=== PATIENT | female | born 1990 | race Caucasian/White ===

== ENCOUNTER → 2016-07-24 | Outpatient (REF) | payer OTHER ==
[~2016-07-24] MED LIST: IBUP80TA PO; NEUR300C PO; [UNRECOGNIZED DRUG - OTHER] TOP
== END ==
LOC: M LAB REF 16:49
PROVIDERS: ATTEND Physician Assistant
DX: R11.10 Vomiting, unspecified (principal)

== ENCOUNTER 2018-04-27 16:43 | Emergency (ER) | payer MEDICAID, OTHER, SELFPAY ==
[~2018-04-27] VITALS: Ht 170.2 cm; Wt 89.1 kg
[2018-04-27] MEDS ORDERED: AMOX500C PO (18:37)
[2018-04-27] MEDS ORDERED: LIDO1SOL7 PO (18:37)
[2018-04-27] MEDS ORDERED: IBUP-1022 PO (18:37)
[2018-04-27] MEDS ORDERED: IBUPROFEN 600 MG TAB PO ONE (18:45)
[2018-04-27] MEDS ORDERED: LIDOCAINE VISCOUS 2% SOLN 15ML UDC SS ONE (18:45)
[2018-04-27 18:48] VITALS: BP 106/63
== END 2018-04-27 18:51 | disposition home or self-care (01) ==
LOC: M ED 16:43
DX: J02.0 Streptococcal pharyngitis (principal); G44.209 Tension-type headache, unspecified, not intractable; R52 Pain, unspecified; F17.210 Nicotine dependence, cigarettes, uncomplicated

== ENCOUNTER 2018-06-22 10:18 | Emergency (ER) | payer MEDICAID, OTHER ==
[~2018-06-22] VITALS: Ht 170.2 cm; Wt 81.8 kg
[~2018-06-22 10:18] MED LIST changes: +AMOX500C PO; +IBUP-1022 PO; +LIDO1SOL7 PO
[2018-06-22 11:19] LABS: BASO # 0.1 10^3/uL (0.0-0.2); BASO % 0.6 % (0.0-1.0); EOS # 0.2 10^3/uL (0.0-0.50); EOS % 1.8 % (0.0-3.0); HEMATOCRIT 42.8 % (36.0-47.0); HEMOGLOBIN 14.7 g/dl (12.0-15.5); LYMPH # 2.9 10^3/uL (1.5-6.5); LYMPH % 22.6 % (24.0-44.0); MEAN CORPUSCULAR HEMOGLOBIN 31.4 pg (27.0-33.0); MEAN CORPUSCULAR HGB CONC 34.3 g/dl (32.0-36.5); MEAN CORPUSCULAR VOLUME 91.5 fl (80.0-96.0); MONO % 7.5 % (0.0-5.0); NEUTROPHILS # 8.5 10^3/uL (1.8-7.7); NEUTROPHILS % 67.3 % (36.0-66.0); PLATELET COUNT, AUTOMATED 251 10^3/uL (150-450); RED BLOOD COUNT 4.68 10^6/uL (4.00-5.40); WHITE BLOOD COUNT 12.7 10^3/uL (4.0-10.0)
[2018-06-22 11:55] LABS: HCG, SERUM QUALITATIVE NEGATIVE (NEGATIVE)
[2018-06-22 11:56] LABS: ALBUMIN 3.4 GM/DL (3.2-5.2); ALT/SGPT 23 U/L (12-78); BILIRUBIN,DIRECT 0.1 MG/DL (0.0-0.2); BILIRUBIN,TOTAL 0.3 MG/DL (0.2-1.0); BLOOD UREA NITROGEN 5 MG/DL (7-18); CALCIUM LEVEL 8.5 MG/DL (8.5-10.1); CARBON DIOXIDE LEVEL 27 MEQ/L (21-32); CHLORIDE LEVEL 109 MEQ/L (98-107); CREATININE FOR GFR 0.65 MG/DL (0.55-1.30); GLOMERULAR FILTRATION RATE > 60.0 (>60); GLUCOSE, FASTING 79 MG/DL (70-100); LIPASE 345 U/L (73-393); POTASSIUM SERUM 4.4 MEQ/L (3.5-5.1); SODIUM LEVEL 140 MEQ/L (136-145); TOTAL PROTEIN 6.7 GM/DL (6.4-8.2)
[2018-06-22] MEDS ORDERED: MACR100C43 PO (12:41)
[2018-06-22 12:42] VITALS: BP 117/73
--- NOTE | 2018-06-22 12:48 | REP ---
PELVIC ENDOVAGINAL PROBE ULTRASOUND: 06/22/2018. Clinical history: Left lower quadrant pain, evaluate for cyst or other. Findings: No prior study. Transabdominal and endovaginal probes were utilized. The bladder measured 7.4 x 7.2 x 3.4 cm, marginally adequate in filling. Uterus is anteverted. It is 7.6 x 2.7 x 4.2 cm. There is a central endometrial echogenic stripe which has a thickness of 8.7 mm. It has a normal three line appearance with no fluid endometrial cavity or endocervical canal. Uterus is normal in contour and homogeneous in echogenicity without gross mass. The right ovary is 3.9 x 2.8 x 2.4 cm and the left ovary 3.4 x 3 x 2.9 cm. Both ovaries showed normal Doppler tracing and blood flow 0.61 resistive index right, 0.59 left. No torsion. No cyst or solid mass. A few subcentimeter follicles are noted as a normal finding. Just trace free fluid in the cul-de-sac. Impression: 1. Uterus and bilateral ovaries were without any acute finding. Trace free fluid in the cul-de-sac which may be physiologic. There is no cyst or solid mass in either adnexal region. Normal Doppler tracing and blood flow, no torsion. A few subcentimeter follicles are normal size. No evidence of a collapsed cyst at this time. Negative exam. Electronically Signed by Blake Lemon MD 06/22/2018 09:18 P
== END 2018-06-22 12:56 | disposition home or self-care (01) ==
LOC: M ED 10:18
DX: N39.0 Urinary tract infection, site not specified (principal); F17.210 Nicotine dependence, cigarettes, uncomplicated

== ENCOUNTER → 2018-10-19 | Outpatient (REF) | payer OTHER ==
[~2018-10-19] MED LIST changes: -LIDO1SOL7 PO; +LIDO1SOL8 PO; +MACR100C43 PO
== END ==
LOC: M LAB REF 17:08
PROVIDERS: ATTEND Physician Assistant
DX: J02.9 Acute pharyngitis, unspecified (principal)

== ENCOUNTER → 2019-01-19 | Outpatient (CLI) | payer MEDICAID | LOC: M OUTALCOH 09:28 | PROVIDERS: ATTEND Psychiatry & Neurology Psychiatry | DX: F15.20 Other stimulant dependence, uncomplicated (principal) ==

== ENCOUNTER 2019-01-27 15:00 | Outpatient (RCR) | payer MEDICAID | END 2019-01-30 | LOC: M OUTALCOH 15:00 | PROVIDERS: ATTEND Psychiatry & Neurology Psychiatry | DX: F15.20 Other stimulant dependence, uncomplicated (principal); F17.200 Nicotine dependence, unspecified, uncomplicated ==

== ENCOUNTER 2019-02-14 13:00 | Outpatient (RCR) | payer MEDICAID | END 2019-03-02 | LOC: M OUTALCOH 13:00 | PROVIDERS: ATTEND Psychiatry & Neurology Psychiatry | DX: F15.20 Other stimulant dependence, uncomplicated (principal); F17.200 Nicotine dependence, unspecified, uncomplicated ==

== ENCOUNTER → 2019-04-18 | Outpatient (CLI) | payer MEDICAID, OTHER ==
[2019-04-18 13:39] LABS: BASO % 0.2 % (0.0-1.0); EOS # 0.2 10^3/uL (0.0-0.5); EOS % 1.5 % (0.0-3.0); HEMATOCRIT 41.6 % (36.0-47.0); HEMOGLOBIN 13.9 g/dl (12.0-15.5); LYMPH # 2.5 10^3/uL (1.5-5.0); MEAN CORPUSCULAR HEMOGLOBIN 31.4 pg (27.0-33.0); MEAN CORPUSCULAR HGB CONC 33.4 g/dl (32.0-36.5); MEAN CORPUSCULAR VOLUME 93.9 fl (80.0-96.0); MONO % 7.9 % (0.0-5.0); NEUTROPHILS # 8.7 10^3/uL (1.5-8.5); NEUTROPHILS % 69.9 % (36.0-66.0); PLATELET COUNT, AUTOMATED 251 10^3/uL (150-450); RED BLOOD COUNT 4.43 10^6/uL (4.00-5.40); WHITE BLOOD COUNT 12.4 10^3/uL (4.0-10.0)
[2019-04-18 15:50] LABS: CHLAMYDIA DNA AMPLIFICATION POSITIVE (NEGATIVE); GC DNA AMPLIFICATION NEGATIVE (NEGATIVE)
[2019-04-19 14:26] LABS: HEPATITIS C VIRUS ABY INDEX 0.2 INDEX (<0.8); HIV 1&2 SCREEN CENTAUR NEGATIVE (NEGATIVE); RUBELLA IgG QUALITATIVE SUSCEPTIBLE (IMMUNE)
== END ==
LOC: M PLALAB 09:19
PROVIDERS: ATTEND Advanced Practice Midwife
DX: Z34.02 Encounter for supervision of normal first pregnancy, second trimester (principal); Z3A.00 Weeks of gestation of pregnancy not specified

== ENCOUNTER → 2019-05-12 | Outpatient (CLI) | payer OTHER ==
--- NOTE | 2019-05-12 12:43 | REP ---
OB ULTRASOUND: Real-time sonographic evaluation of the gravid uterus performed. Transabdominal and endovaginal technique is utilized. There is a single living intrauterine gestation with an estimated gestational age 17 weeks 6 days, EDC 10/14/2019. Today's measurements indicate appropriate growth. Biometry and Growth: BPD 38 mm = 17 weeks 5 days, 41st percentile HC 143 mm = 17 weeks 4 days, 37th percentile AC 122 mm = 17 weeks 6 days, 49th percentile FL 26 mm = 18 weeks 0 days, 53rd percentile HC/AC ratio 1.17 within normal range. Estimated weight 214 grams, 46th percentile. SEEN/GROSSLY UNREMARKABLE Lateral ventricles Yes. There may be a 3 mm left choroid plexus cyst. Posterior fossa/cerebellum No Upper lip No Four-chamber heart No LVOT No RVOT Yes Stomach Yes Cord insertion Yes Three vessel cord Yes Kidneys Yes Bladder Yes Spine Yes Cervical length: Closed and measures 3.7 cm in length. heart rate: 150 beats per minute. position: Variable. Placenta: Posterior and grade 1. Placenta is low-lying. Edge of the placenta is 1.1 cm from the internal cervical os. Amniotic fluid: Within normal limits. Electronically Signed by Shiva Raya MD 05/13/2019 03:17 P
== END ==
LOC: M RAD 09:59
PROVIDERS: ATTEND Advanced Practice Midwife
DX: Z34.02 Encounter for supervision of normal first pregnancy, second trimester (principal); Z3A.17 17 weeks gestation of pregnancy

== ENCOUNTER → 2019-05-17 | Outpatient (REF) | payer OTHER ==
[2019-05-17 15:45] LABS: CHLAMYDIA DNA AMPLIFICATION NEGATIVE (NEGATIVE); GC DNA AMPLIFICATION NEGATIVE (NEGATIVE)
== END ==
LOC: M SFHCWAGY 13:33
PROVIDERS: ATTEND Advanced Practice Midwife
DX: Z34.92 Encounter for supervision of normal pregnancy, unspecified, second trimester (principal)

== ENCOUNTER → 2019-05-29 | Outpatient (CLI) | payer OTHER ==
--- NOTE | 2019-05-30 01:27 | REP ---
Clinical: Anatomical evaluation. Comparison: 05/12/2019 . Findings: Examination demonstrates a single live intrauterine in cephalic presentation. motion is identified by technologist. Placenta is noted posterior and grade I without evidence for placenta previa or abruption. Amniotic fluid volume is normal. Cervix measures 3.2 cm in length and appears closed. No evidence for nuchal cord. Gestational age by LMP 20 weeks 2 days with ARTEM 10/14/2019 . Gestational age by current measurements 19 weeks 4 days with ARTEM 10/19/2019 . FHR equals 146 beats per minute. Estimated weight 341 grams ( 43rd percentile). Anatomical assessment demonstrates normal structures including cranium, choroid plexus, cavum, cerebellum/posterior fossa, facial features, lungs, ventricular outflow tracts, diaphragm, stomach, cord insertion/three-vessel cord, kidneys/bladder, and extremities. Previously identified left choroid plexus cyst has resolved. Limited evaluation of the four-chamber heart. Impression: 1. Single live intrauterine in cephalic presentation demonstrating appropriate interval growth. 2. Placenta is normal in appearance and position. 3. With the exception of four-chamber heart views, in conjunction with prior examination anatomical assessment is otherwise complete and normal.
== END ==
LOC: M WHC 13:44
PROVIDERS: ATTEND Advanced Practice Midwife
DX: Z34.92 Encounter for supervision of normal pregnancy, unspecified, second trimester (principal); Z3A.20 20 weeks gestation of pregnancy

== ENCOUNTER → 2019-07-13 | Outpatient (CLI) | payer OTHER ==
[~2019-07-13] MED LIST changes: -LIDO1SOL8 PO; +LIDO2SOL17 PO
--- NOTE | 2019-07-14 06:39 | REP ---
Clinical: Anatomical evaluation. Comparison: 05/29/2019 Findings: Examination demonstrates a single live intrauterine in breech presentation. motion is identified by technologist. Placenta is noted posterior and grade I without evidence for placenta previa or abruption. Amniotic fluid volume is normal. Cervix measures 3.1 cm in length and appears closed. No evidence for nuchal cord. Gestational age by LMP 26 weeks 5 days with ARTEM 10/14/2019 . Gestational age by current measurements 24 weeks 6 days with ARTEM 10/27/2019 . FHR equals 161 beats per minute. Estimated weight 791 grams ( 9th percentile). Anatomical assessment demonstrates normal structures including cranium, four-chamber heart, diaphragm, stomach, cord insertion/three-vessel cord, kidneys/bladder. Impression: 1. Single live intrauterine in breech presentation demonstrating less than expected interval growth. 2. In conjunction with prior examination anatomical assessment is complete and normal.
== END ==
LOC: M WHC 09:34
PROVIDERS: ATTEND Advanced Practice Midwife
DX: O99.332 Smoking (tobacco) complicating pregnancy, second trimester (principal)

== ENCOUNTER → 2019-07-24 | Outpatient (CLI) | payer OTHER ==
--- NOTE | 2019-07-24 13:57 | REP ---
Clinical: well-being Comparison: 07/13/2019 . Findings: Examination demonstrates a single live intrauterine in cephalic presentation. motion is identified by technologist. Placenta is noted posterior and grade I without evidence for placenta previa or abruption. Amniotic fluid volume is normal. Cervix measures 3.0 cm in length and appears closed. No evidence for nuchal cord. Gestational age by LMP 28 weeks 2 days with ARTEM 10/14/2019 . FHR equals 146 beats per minute. Amniotic fluid index: 8.1 cm (9.3 - 22.9) Biophysical profile score equals 8/8. Breathing - 2 Movement - 2 Tone - 2 AFV - 2 Impression: Single live intrauterine in cephalic presentation. Biophysical profile score 8/8 Amniotic fluid volume is borderline normal / low.
== END ==
LOC: M WHC 12:45
PROVIDERS: ATTEND Advanced Practice Midwife
DX: O36.5920 Maternal care for other known or suspected poor fetal growth, second trimester, not applicable or unspecified (principal); Z3A.28 28 weeks gestation of pregnancy

== ENCOUNTER → 2019-07-24 | Outpatient (REF) | payer OTHER ==
[2019-07-24 18:19] LABS: HEMATOCRIT 41.6 % (36.0-47.0); HEMOGLOBIN 13.6 g/dl (12.0-15.5); MEAN CORPUSCULAR HEMOGLOBIN 31.1 pg (27.0-33.0); MEAN CORPUSCULAR HGB CONC 32.7 g/dl (32.0-36.5); MEAN CORPUSCULAR VOLUME 95.2 fl (80.0-96.0); PLATELET COUNT, AUTOMATED 342 10^3/uL (150-450); RED BLOOD COUNT 4.37 10^6/uL (4.00-5.40); WHITE BLOOD COUNT 17.3 10^3/uL (4.0-10.0)
== END ==
LOC: M PLALAB 12:45
PROVIDERS: ATTEND Advanced Practice Midwife
DX: O99.332 Smoking (tobacco) complicating pregnancy, second trimester (principal)

== ENCOUNTER → 2019-07-31 | Outpatient (CLI) | payer OTHER ==
--- NOTE | 2019-07-31 17:34 | REP ---
OB ULTRASOUND: Real-time sonographic evaluation of the gravid uterus is performed. There is a single living intrauterine gestation. The estimated gestational age is reportedly 29 weeks 2 days, EDC 10/14/2019. Today's measurements indicate appropriate growth. BPD 68 mm = 27 weeks 2 days, 9th percentile HC 267 mm = 29 weeks 0 days, 44th percentile AC 242 mm = 28 weeks 3 days, 32nd percentile FL 53 mm = 28 weeks 1 day, 25th percentile HC/AC ratio 1.10, within normal range. Estimated weight 1231 grams, 23rd percentile. Cervix is closed and measures 3.7 cm in length. heart rate 156 beats per minute. Amniotic fluid within normal limits. ANAMIKA 9.6 within normal range of 9.1 to 23.2. Biophysical profile score 8/8. S/D ratio 3.06 is within normal range of 2.5 to 3.5. RI 0.67 within normal range of 0.59 to 0.75. Visualized anatomy today includes upper lip, stomach, three vessel cord, kidneys and bladder which are grossly unremarkable. position vertex. Placenta posterior and grade 2 with no previa or abruption.
== END ==
LOC: M WHC 14:19
PROVIDERS: ATTEND Advanced Practice Midwife
DX: O36.5920 Maternal care for other known or suspected poor fetal growth, second trimester, not applicable or unspecified (principal); Z3A.29 29 weeks gestation of pregnancy

== ENCOUNTER → 2019-08-04 | Outpatient (CLI) | payer OTHER ==
[~2019-08-04] MED LIST changes: +FLIN1CHW PO; +TUMS500C PO
== END ==
LOC: M WHC 09:56
PROVIDERS: ATTEND Obstetrics & Gynecology
DX: Z53.9 Procedure and treatment not carried out, unspecified reason (principal); O36.5930 Maternal care for other known or suspected poor fetal growth, third trimester, not applicable or unspecified; Z3A.00 Weeks of gestation of pregnancy not specified

== ENCOUNTER 2019-08-06 20:21 | Outpatient (CLI) | payer OTHER ==
[~2019-08-06] VITALS: Ht 170.2 cm; Wt 106.0 kg
[~2019-08-06 20:21] MED LIST changes: -FLIN1CHW PO; -TUMS500C PO
[2019-08-06 20:32] VITALS: BP 118/65
[2019-08-06] MEDS ORDERED: TUMS500C PO (20:38)
[2019-08-06] MEDS ORDERED: FLIN1CHW PO (20:38)
== END 2019-08-06 21:29 | disposition home or self-care (01) ==
LOC: M LDO 20:21
PROVIDERS: ATTEND Obstetrics & Gynecology
DX: O36.8130 Decreased fetal movements, third trimester, not applicable or unspecified (principal); O99.333 Smoking (tobacco) complicating pregnancy, third trimester; F17.210 Nicotine dependence, cigarettes, uncomplicated; O36.5930 Maternal care for other known or suspected poor fetal growth, third trimester, not applicable or unspecified; Z3A.30 30 weeks gestation of pregnancy

== ENCOUNTER → 2019-08-11 | Outpatient (CLI) | payer OTHER ==
[~2019-08-11] MED LIST changes: +FLIN1CHW PO; +TUMS500C PO
== END ==
LOC: M WHC 13:31
PROVIDERS: ATTEND Advanced Practice Midwife
DX: Z53.9 Procedure and treatment not carried out, unspecified reason (principal); O36.5930 Maternal care for other known or suspected poor fetal growth, third trimester, not applicable or unspecified; Z3A.00 Weeks of gestation of pregnancy not specified

== ENCOUNTER → 2019-08-18 | Outpatient (CLI) | payer OTHER ==
--- NOTE | 2019-08-18 14:59 | REP ---
REASON FOR EXAM: Obtain biophysical profile due to IUGR. Multiple ultrasonographic images of the gravid uterus show a single living intrauterine gestation in the cephalic presentation. Doppler interrogation of the heart shows a heart rate of 156 beats per minute. The placenta is posterior and not low lying. The subjective amniotic fluid volume is within normal limits. The calculated amniotic fluid index is 13.8 with an expected range of 8.6 to 24.2. The cervix measures 3.5 cm in length and is closed. biophysical profile score is 2 for breathing, 2 for movement, 2 for tone, 2 for amniotic fluid volume given a some total of 8 out of 8. Doppler interrogation of the insertion umbilical artery shows an A/B ratio of 2.64. This is below the normal limit of normal which is 3.3. Doppler at the placental insertion has an A/B ratio of 2.43. This is also below the lower limit of normal of 2.5. Doppler of the umbilical artery at the mid cord level has an A/B ratio of 2.39. This is also below the normal limit of 2.5. IMPRESSION: Limited OB ultrasound as described above.
== END ==
LOC: M WHC 10:34
PROVIDERS: ATTEND Advanced Practice Midwife
DX: O36.5930 Maternal care for other known or suspected poor fetal growth, third trimester, not applicable or unspecified (principal)

== ENCOUNTER → 2019-08-25 | Outpatient (CLI) | payer OTHER ==
--- NOTE | 2019-08-26 08:13 | REP ---
OB ULTRASOUND BIOPHYSICAL PROFILE: Real-time sonographic evaluation of the gravid uterus performed. There is a single living intrauterine gestation. The estimated gestational age is 32 weeks 6 day, EDC 10/14/2019. Today's measurements indicate appropriate growth. BPD 76 mm = 30 weeks 6 days, 21st percentile HC 285mm = 31 weeks 2 days, 26th percentile AC 273 mm = 31 weeks 2 days, 26th percentile FL 60 mm = 21 weeks 3 days, 28th percentile HC/AC ratio 1.05 within normal range. Estimated weight 1742 grams 15th percentile. heart rate 133 beats per minute. Amniotic fluid within normal limits, ANAMIKA 12.1, normal range 8.3 to 24.5. Biophysical profile score 8/8. S/D ratio: 2.71, normal range 2.05 to 3.05. RI: 0.63, normal range 0.59 to 0.75. position: Vertex. Placenta: Posterior and grade 2 with no previa or abruption.
== END ==
LOC: M WHC 10:37
PROVIDERS: ATTEND Advanced Practice Midwife
DX: O36.5930 Maternal care for other known or suspected poor fetal growth, third trimester, not applicable or unspecified (principal); Z3A.32 32 weeks gestation of pregnancy

== ENCOUNTER → 2019-08-30 | Outpatient (CLI) | payer OTHER ==
--- NOTE | 2019-08-31 04:47 | REP ---
Clinical: well-being Comparison: 08/25/2019 . Findings: Examination demonstrates a single live intrauterine in cephalic presentation. motion is identified by technologist. Placenta is noted posterior and grade I I I without evidence for placenta previa or abruption. Amniotic fluid volume is normal. Cervix measures 3.1 cm in length and appears closed. No evidence for nuchal cord. Gestational age by LMP 33 weeks 4 days with ARTEM 10/14/2019 . Gestational age by current measurements 30 weeks 5 days FHR equals 147 beats per minute. Amniotic fluid index: 10.1 cm Biophysical profile score: 8/8 Estimated weight 1671 grams ( less than 3rd percentile based on age by first ultrasound and LMP). Impression: 1. Biophysical profile score and amniotic fluid volume are normal. 2. Less than expected interval growth noted.
== END ==
LOC: M WHC 11:30
PROVIDERS: ATTEND Obstetrics & Gynecology
DX: O36.5930 Maternal care for other known or suspected poor fetal growth, third trimester, not applicable or unspecified (principal); Z3A.33 33 weeks gestation of pregnancy

== ENCOUNTER → 2019-09-01 | Outpatient (REF) | payer OTHER | LOC: M SFHCWAGY 16:26 | PROVIDERS: ATTEND Advanced Practice Midwife | DX: O36.5930 Maternal care for other known or suspected poor fetal growth, third trimester, not applicable or unspecified (principal) ==

== ENCOUNTER → 2019-09-07 | Outpatient (CLI) | payer OTHER ==
--- NOTE | 2019-09-07 19:05 | REP ---
Clinical: well-being Comparison: 08/30/2019 . Findings: Examination demonstrates a single live intrauterine in cephalic presentation. motion is identified by technologist. Placenta is noted posterior and grade I I I without evidence for placenta previa or abruption. Amniotic fluid volume is normal. Cervix measures 3.2 cm in length and appears closed. No evidence for nuchal cord. Gestational age by LMP 34 weeks 5 days with ARTEM 10/14/2019 . FHR equals 138 beats per minute. Biophysical profile score: 8/8 Amniotic fluid index: 12.0 cm Umbilical cord SD ratio: 2.50 Impression: Single live intrauterine in cephalic presentation. Biophysical profile score and amniotic fluid volume are normal.
== END ==
LOC: M WHC 14:21
PROVIDERS: ATTEND Obstetrics & Gynecology
DX: O36.5930 Maternal care for other known or suspected poor fetal growth, third trimester, not applicable or unspecified (principal); Z3A.34 34 weeks gestation of pregnancy

== ENCOUNTER → 2019-09-12 | Outpatient (CLI) | payer OTHER ==
--- NOTE | 2019-09-13 02:55 | REP ---
Clinical: Growth evaluation Comparison: 09/07/2019 . Findings: Examination demonstrates a single live intrauterine in cephalic presentation. motion is identified by technologist. Placenta is noted posterior and grade I I I without evidence for placenta previa or abruption. Amniotic fluid volume is normal. Cervix measures 3.0 cm in length and appears closed. No evidence for nuchal cord. Gestational age by LMP 35 weeks 3 days with ARTEM 10/14/2019 . Gestational age by current measurements 32 weeks 6 days. FHR equals 149 beats per minute. BPD 7.9 cm 31 weeks 4 days HC 29.8 cm 33 weeks 0 days AC 30.3 cm 34 weeks 2 days FL 6.5 cm 33 weeks 4 days HL 5.7 cm 32 weeks 6 days HC/AC ratio 0.98 Estimated weight 2250 grams ( 19th percentile). Biophysical profile score:8/8 Umbilical cord SD ratio: 2.71 Impression: 1. Single live advanced gestation in cephalic presentation. Less than expected interval growth cannot be excluded.
== END ==
LOC: M WHC 10:23
PROVIDERS: ATTEND Obstetrics & Gynecology
DX: O36.5930 Maternal care for other known or suspected poor fetal growth, third trimester, not applicable or unspecified (principal); Z3A.32 32 weeks gestation of pregnancy

== ENCOUNTER → 2019-09-19 | Outpatient (CLI) | payer OTHER ==
[~2019-09-19] MED LIST changes: +ACET-683 PO; +PRENTAB9 PO
--- NOTE | 2019-09-20 04:22 | REP ---
Clinical: Anatomical evaluation. Comparison: 09/12/2019 . Findings: Examination demonstrates a single live intrauterine in cephalic presentation. motion is identified by technologist. Placenta is noted posterior and grade I I I without evidence for placenta previa or abruption. Amniotic fluid volume is normal. Cervix appears closed. Gestational age by LMP 36 weeks 3 days with ARTEM 10/14/2019 . FHR equals 136 beats per minute. Biophysical profile score: 8/8 Amniotic fluid volume: 12.0 cm Umbilical cord SD ratio: 2.41 Impression: Single live advanced gestation in cephalic presentation. Biophysical profile score and amniotic fluid volume are normal.
== END ==
LOC: M WHC 11:08
PROVIDERS: ATTEND Obstetrics & Gynecology
DX: O36.5930 Maternal care for other known or suspected poor fetal growth, third trimester, not applicable or unspecified (principal); Z3A.36 36 weeks gestation of pregnancy

== ENCOUNTER 2019-09-22 15:10 | Inpatient (IN) | payer OTHER ==
[~2019-09-22] VITALS: Ht 170.2 cm; Wt 109.0 kg
[~2019-09-22 15:10] MED LIST changes: -ACET-683 PO; -PRENTAB9 PO
[2019-09-22 15:29] VITALS: BP 128/72
[2019-09-22] MEDS ORDERED: PRENTAB9 PO (16:26)
[2019-09-22] MEDS ORDERED: LACTATED RINGER'S 1000 ML IV STA (16:36)
[2019-09-22 16:54] LABS: HEMATOCRIT 37.1 % (36.0-47.0); HEMOGLOBIN 12.2 g/dl (12.0-15.5); MEAN CORPUSCULAR HEMOGLOBIN 29.7 pg (27.0-33.0); MEAN CORPUSCULAR HGB CONC 32.9 g/dl (32.0-36.5); MEAN CORPUSCULAR VOLUME 90.3 fl (80.0-96.0); PLATELET COUNT, AUTOMATED 254 10^3/uL (150-450); RED BLOOD COUNT 4.11 10^6/uL (4.00-5.40); WHITE BLOOD COUNT 13.4 10^3/uL (4.0-10.0)
[2019-09-22] MEDS: miSOPROStol 50 MCG 1/2 TAB (S0191) PO SCH ×2 (17:00→21:02)
--- NOTE | 2019-09-22 17:19 | HPEPDOC ---
Obstetrical History & Physical General Date of Admission September 22, 2019 at 15:10 History of Present Illness Chief Complaint: Induction of labor (IUGR) Information Provided By: Patient Age: 29 : 1 Care Care: Good Care Dating Final EDC: Oct 13, 2019 Final EDC by: 1st trimester (US) EGA at Admission: 37 Antepartum Course Height (inches): 67 Pre- weight (lbs.): 215 Admission Weight (lbs.): 239 Past Medical History Past Obstetrical History : Past Obstetrical History: [facility] History: No pertinent history Past Medical History Surgical History: Other (knee arthroscopy) Family History Significant Family History: Cancer, Hypertension Social History Marital Status: Single Psychosocial History: Depression * Smoker: current smoker Drugs: denies Abuse Violence Screening Have you been hit/kicked/slapp: No Have you been sexually assault: No Imunizations Tdap status: declined Allergies Coded Allergies: No Known Allergies (Unverified , 02/07/14) Medications Scheduled No.137/Iron/Folic Acd ( Vitamin Tablet) 1 Each Tablet, 1 TAB PO DAILY Physical Examination Physical Examination GENERAL: Alert and oriented times three. BREAST: . ABDOMEN: Gravid and non-tender to touch. FETUS: Is vertex (VTX) by sterile vaginal examination (SVE), fetus is vertex (VTX) by Diaz. HEART RATE: Regular rate and rhythm. LUNGS: Clear to auscultation (CTA). EXTREMITIES: No edema. No clonus. Deep tendon reflexes (DTRs) + 2. Vital Signs/I&O Vital Signs Date Time Temp Pulse Resp B/P (MAP) Pulse Ox O2 Delivery O2 Flow Rate FiO2 09/22/19 15:29 108 18 128/72 (90) Laboratory Data 24H LABS Laboratory Tests 2 09/22/19 15:42: Serology Scanned Report Hepatitis B Testing Pertinent Laboratoy Data Blood Type: A+ RBC Antibody Screen: Negative Hepatitis B: Negative Hepatitis C: Negative Rapid Plasma Reagin: Nonreactive Rubella: Nonreactive Chlamydia/Gonorrhea: Positive (EVAN was then negative.) Group B Streptococcus: Negative Glucose Tolerance Test: 90 Diag/Inter Therapy Evaluation at [facility] for IUGR Anatomy Ultrasound Ultrasound Date: May 12, 2019 Normal Anatomy: Yes Placenta Previa: No (low lying) Estimated Weight (grams): 214 (46%) Other Ultrasounds 03/16/2019 dating 9w6d ARTEM 10/13/2019 07/13/2019 EFW 791gm 9% 07/31/2019 EFW 1231gm 23% BPP 8/8 08/08/2019 PNC growth 6% 08/25/2019 EFW 1752gm 15% BPP 8/8 08/30/2019 EFW 1671gm <3% 09/07/2019 BPP 8/8 09/12/2019 EFW 2250gm 19% BPP 8/8 09/19/2019 BPP 8/8 Steroid Therapy Steroid Therapy: No Vaginal Examination Dilation: 1cm Effacement: 50% Station: -3 Cervical Consistency: Soft Cervical Position: Posterior Presentation: Cephalic presentation (confirmed by bedside sono) Assessment Heart Rate (FHR): 145 Variability: Moderate Accelerations: Positive Decelerations: None Tocometer Frequency: irregular Strength: palpated as mild Assessment/Plan Assessment Renea is a 29-year-old (G)1 para (P)0-0-0-0 at 37+0 weeks by 9-week ultrasound. Presents to Labor and Delivery (L&D) for induction of labor due to IUGR. has been complicated by morbid obesity, tobacco abuse and labile growth. Last sono persistent <3%. APFT has been reassuring with weekly BPP. Plan Admit and orient per consult Dr Toro Sales Contract Administrator and consent. Diet: regular. Group B Streptococcus (GBS) negative. Labs and intravenous (IV) per unit protocol. Counseled on misoprostol, Pitocin and induction of labor (IOL). Lactated Ringers (LR): Bolus 500 mL, then saline lock. Pt is considering pain management options Anticipate normal spontaneous delivery (). C-S as appropriate. Kayla Rodriguez CNM September 22, 2019 17:07
[2019-09-22 19:42] VITALS: BP 134/80
[2019-09-22] MEDS ORDERED: hydrOXYzine 50 MG TAB PO SCH (21:00)
[2019-09-22 23:38] VITALS: BP 126/79
[2019-09-23] VITALS (24 sets, daily range): BP systolic 102–140; BP diastolic 53–90
[2019-09-23] MEDS: miSOPROStol 50 MCG 1/2 TAB (S0191) PO SCH ×2 (01:04→05:07)
[2019-09-23] MEDS ORDERED: LR 1,000 ML IV SCH (10:15)
[2019-09-23] MEDS ORDERED: OXYTOCIN DRIP 30 UNITS in IV 1 EA IV SCH (10:15)
[2019-09-23] MEDS ORDERED: BUTORPHANOL 2 MG/ML INJ (J0595) IV ONE (20:00)
[2019-09-23] MEDS ORDERED: PROMETHAZINE INJ 25 MG/ML VIAL (J2550) IV ONE (20:00)
[2019-09-23] MEDS ORDERED: ACETAMINOPHEN 500 MG TAB PO PRN (22:45)
[2019-09-23] MEDS ORDERED: ACETAMINOPHEN TAB 650MG DOSE (2X325MG) PO PRN (22:45)
[2019-09-23] MEDS ORDERED: IBUPROFEN 600 MG TAB PO PRN (22:45)
[2019-09-23] MEDS ORDERED: OXYTOCIN DRIP 30 UNITS in IV 1 EA IV ONE (22:45)
[2019-09-23] MEDS ORDERED: MEASLES,MUMPS,RUBELLA VACCINE INJ (MMR-II) (90707) SC SCH (22:45)
[2019-09-23] MEDS ORDERED: RHOGAM 300 MCG (1500 IU) INJ (J2790) IM SCH (22:45)
[2019-09-23] MEDS ORDERED: IBUPROFEN 800 MG TAB PO PRN (22:45)
[2019-09-23] MEDS ORDERED: DOCUSATE SODIUM 100 MG CAP PO PRN (22:45)
[2019-09-23] MEDS ORDERED: DIBUCAINE 1% OINTMENT 30GM TOP PRN (22:45)
[2019-09-23] MEDS ORDERED: ONDANSETRON 4MG/2ML VIAL IV PRN (22:45)
[2019-09-23] MEDS ORDERED: METHYLERGONOVINE MALEATE 0.2 MG TAB PO PRN (22:45)
[2019-09-23 22:52] LABS: CORD GAS ABE V -6.7; CORD GAS HCO3 V 16.5 MEQ/L; CORD GAS O2 SAT V 94.3 %; CORD GAS PCO2 V 28.6 mmHg; CORD GAS PH V 7.38 UNITS; CORD GAS PO2 V 55.3 mmHg; CORD GAS SBC V 19.1 MEQ/L; CORD GAS TCO2 V 17.4 MEQ/L
[2019-09-24 00:06] VITALS: BP 123/68
[2019-09-24 02:28] VITALS: BP 124/74
[2019-09-24 06:37] VITALS: BP_SYST 115; BP_SYST 95; BP_DIAS 47; BP_DIAS 59
[2019-09-24] MEDS: PRENATAL VITAMINS CHEWABLE TABLET PO SCH (09:34)
--- NOTE | 2019-09-24 13:21 | DN ---
DATE OF DELIVERY 09/23/2019 PREDELIVERY DIAGNOSIS: 37 and 1/7 weeks gestation, intrauterine growth retardation, labor induction. POST DELIVERY DIAGNOSIS: Delivered. PROCEDURE: Spontaneous vaginal delivery. DISC PAD GRINDING MACHINE FEEDER: Dr. Salvatore Toro ANESTHESIA: None. ESTIMATED BLOOD LOSS: 300 mL. FINDINGS: 2450 gram, 5 pound 6 ounce female , Apgars 7 and 8. DELIVERY SUMMARY: After 20 minute second stage, the patient spontaneously delivered a 5 pound 6 ounce female , Apgars 7 and 9, with no delivery anesthesia. Nuchal cord times two was reduced manually. The shoulders delivered with ease. The infant was handed to the mother. The cord was doubly clamped and cut. The placenta delivered spontaneously and appeared to be intact. The patient received IV Pitocin immediately after delivery of the placenta. There were no vaginal lacerations present. Venous blood gas 7.38, base excess -6.7. Needle counts and sponge counts were correct.
[2019-09-24 18:00] VITALS: BP 129/67
[2019-09-25 06:41] VITALS: BP 111/59
[2019-09-25] MEDS: PRENATAL VITAMINS CHEWABLE TABLET PO SCH (07:29)
[2019-09-25] MEDS ORDERED: ACET-683 PO (08:55)
[2019-09-25] MEDS ORDERED: IBUP80TA PO (08:55)
== END 2019-09-25 18:25 | disposition home or self-care (01) | DRG 560 ==
LOC: M LDI 15:10 → M OBS 09-24 02:21
PROVIDERS: ADMIT Advanced Practice Midwife; ATTEND Advanced Practice Midwife
PROC: 10E0XZZ Delivery of Products of Conception, External Approach (ICD-10-PCS; principal; 2019-09-23)
DX: O36.5930 Maternal care for other known or suspected poor fetal growth, third trimester, not applicable or unspecified (principal); Z37.0 Single live birth; E66.01 Morbid (severe) obesity due to excess calories; Z3A.37 37 weeks gestation of pregnancy; F17.200 Nicotine dependence, unspecified, uncomplicated; O99.334 Smoking (tobacco) complicating childbirth; O99.214 Obesity complicating childbirth; O69.82X0 Labor and delivery complicated by other cord entanglement, without compression, not applicable or unspecified

== ENCOUNTER → 2020-02-02 | Outpatient (REF) | payer OTHER ==
[~2020-02-02] MED LIST changes: +ACET-683 PO; +PRENTAB9 PO
[2020-02-02 12:41] LABS: BASO # 0.1 10^3/uL (0.0-0.2); BASO % 0.5 % (0.0-1.0); EOS # 0.3 10^3/uL (0.0-0.5); EOS % 2.8 % (0.0-3.0); HEMATOCRIT 45.4 % (36.0-47.0); HEMOGLOBIN 14.1 g/dl (12.0-15.5); LYMPH # 2.8 10^3/uL (1.5-5.0); LYMPH % 30.1 % (24.0-44.0); MEAN CORPUSCULAR HEMOGLOBIN 26.7 pg (27.0-33.0); MEAN CORPUSCULAR HGB CONC 31.1 g/dl (32.0-36.5); MEAN CORPUSCULAR VOLUME 85.8 fl (80.0-96.0); MONO # 0.6 10^3/uL (0.0-0.8); MONO % 6.8 % (0.0-5.0); NEUTROPHILS # 5.5 10^3/uL (1.5-8.5); NEUTROPHILS % 59.5 % (36.0-66.0); PLATELET COUNT, AUTOMATED 325 10^3/uL (150-450); RED BLOOD COUNT 5.29 10^6/uL (4.00-5.40); WHITE BLOOD COUNT 9.3 10^3/uL (4.0-10.0)
[2020-02-02 12:54] LABS: HEMOGLOBIN A1c 5.2 %
[2020-02-02 13:24] LABS: ALBUMIN 3.4 GM/DL (3.2-5.2); ALT/SGPT 37 U/L (12-78); BILIRUBIN,TOTAL 0.3 MG/DL (0.2-1.0); BLOOD UREA NITROGEN 12 MG/DL (7-18); CALCIUM LEVEL 8.8 MG/DL (8.5-10.1); CARBON DIOXIDE LEVEL 21 MEQ/L (21-32); CHLORIDE LEVEL 110 MEQ/L (98-107); CHOLESTEROL LEVEL 163 MG/DL (<200); CHOLESTEROL RISK RATIO 4.794 (<5); FERRITIN 20 NG/ML (8-252); FOLATE 7.9 NG/ML; GLOMERULAR FILTRATION RATE > 60.0 (>60); GLUCOSE, FASTING 119 MG/DL (70-100); HDL CHOLESTEROL 34 MG/DL (>40); IRON (FE) 28 UG/DL (50-170); LDL CHOLESTEROL 104 MG/DL (<100); NON-HDL-C 129 MG/DL; POTASSIUM SERUM 4.4 MEQ/L (3.5-5.1); SODIUM LEVEL 139 MEQ/L (136-145); TOTAL PROTEIN 7.2 GM/DL (6.4-8.2); TRIGLYCERIDES LEVEL 124 MG/DL (<150); VITAMIN B12 LEVEL 503 PG/ML
== END ==
LOC: M LAB REF 11:24
PROVIDERS: ATTEND Physician Assistant
DX: R53.83 Other fatigue (principal)

== ENCOUNTER → 2020-03-20 | Outpatient (REF) | payer OTHER | LOC: M LAB REF 13:03 | PROVIDERS: ATTEND Specialist | DX: D23.21 Other benign neoplasm of skin of right ear and external auricular canal (principal) ==

== ENCOUNTER → 2020-03-22 | Outpatient (CLI) | payer SELFPAY | LOC: M LABSMTC 12:56 | PROVIDERS: ATTEND Pediatrics | DX: Z20.828 Contact with and (suspected) exposure to other viral communicable diseases (principal) ==

== ENCOUNTER → 2020-05-15 | Outpatient (CLI) | payer SELFPAY | LOC: M LABSMTC 11:57 | PROVIDERS: ATTEND Pediatrics | DX: Z20.822 Contact with and (suspected) exposure to COVID-19 (principal) ==

== ENCOUNTER → 2021-08-07 | Outpatient (REF) | payer SELFPAY, OTHER | LOC: M LAB REF 15:39 | PROVIDERS: ATTEND Podiatrist | DX: L03.012 Cellulitis of left finger (principal); M79.671 Pain in right foot ==

== ENCOUNTER → 2022-02-24 | Outpatient (CLI) | payer OTHER ==
[2022-02-24 13:55] LABS: HEMATOCRIT 41.3 % (36.0-47.0); HEMOGLOBIN 13.2 g/dl (12.0-15.5); MEAN CORPUSCULAR HEMOGLOBIN 29.7 pg (27.0-33.0); MEAN CORPUSCULAR VOLUME 92.8 fl (80.0-96.0); PLATELET COUNT, AUTOMATED 228 10^3/uL (150-450); RED BLOOD COUNT 4.45 10^6/uL (4.00-5.40); WHITE BLOOD COUNT 10.4 10^3/uL (4.0-10.0)
[2022-02-24 15:14] LABS: HIV 1&2 SCREEN CENTAUR NEGATIVE (NEGATIVE)
[2022-02-24 15:24] LABS: GC DNA AMPLIFICATION NEGATIVE (NEGATIVE)
== END ==
LOC: M PLALAB 09:21
PROVIDERS: ATTEND Obstetrics & Gynecology
DX: Z34.91 Encounter for supervision of normal pregnancy, unspecified, first trimester (principal)

== ENCOUNTER → 2022-04-03 | Outpatient (REF) | payer OTHER | LOC: M PLALAB 16:28 | PROVIDERS: ATTEND Advanced Practice Midwife | DX: Z53.20 Procedure and treatment not carried out because of patient's decision for unspecified reasons (principal) ==

== ENCOUNTER → 2022-04-22 | Outpatient (CLI) | payer OTHER | LOC: M WHC 14:24 | PROVIDERS: ATTEND Advanced Practice Midwife | DX: O99.332 Smoking (tobacco) complicating pregnancy, second trimester (principal); F17.200 Nicotine dependence, unspecified, uncomplicated; Z3A.22 22 weeks gestation of pregnancy ==

== ENCOUNTER → 2022-05-08 | Outpatient (REF) | payer OTHER | LOC: M PLALAB 10:32 | PROVIDERS: ATTEND Advanced Practice Midwife | DX: Z53.9 Procedure and treatment not carried out, unspecified reason (principal) ==

== ENCOUNTER → 2022-06-24 | Outpatient (CLI) | payer OTHER ==
[~2022-06-24] MED LIST changes: +LIDO15SO4 PO; -LIDO2SOL17 PO
== END ==
LOC: M WHC 14:59
PROVIDERS: ATTEND Advanced Practice Midwife
DX: Z34.93 Encounter for supervision of normal pregnancy, unspecified, third trimester (principal); Z3A.32 32 weeks gestation of pregnancy

== ENCOUNTER → 2022-07-07 | Outpatient (CLI) | payer OTHER ==
[2022-07-07 16:13] LABS: HEMATOCRIT 36.4 % (36.0-47.0); HEMOGLOBIN 12.1 g/dl (12.0-15.5); MEAN CORPUSCULAR HEMOGLOBIN 30.4 pg (27.0-33.0); MEAN CORPUSCULAR HGB CONC 33.2 g/dl (32.0-36.5); MEAN CORPUSCULAR VOLUME 91.5 fl (80.0-96.0); PLATELET COUNT, AUTOMATED 278 10^3/uL (150-450); RED BLOOD COUNT 3.98 10^6/uL (4.00-5.40); WHITE BLOOD COUNT 12.8 10^3/uL (4.0-10.0)
== END ==
LOC: M PLALAB 12:03
PROVIDERS: ATTEND Obstetrics & Gynecology
DX: Z34.92 Encounter for supervision of normal pregnancy, unspecified, second trimester (principal); Z3A.00 Weeks of gestation of pregnancy not specified

== ENCOUNTER → 2022-07-07 | Outpatient (CLI) | payer OTHER ==
[2022-07-07 16:38] LABS: ALBUMIN 2.3 G/DL (3.2-5.2); ALKALINE PHOSPHATASE 102 U/L (46-116); ALT/SGPT 18 U/L (7.0-40); AST/SGOT 16 U/L (<34); BILIRUBIN,TOTAL 0.2 MG/DL (0.3-1.2); BLOOD UREA NITROGEN 6 MG/DL (9-23); CALCIUM LEVEL 8.3 MG/DL (8.5-10.1); CARBON DIOXIDE LEVEL 26 MMOL/L (20-31); CHLORIDE LEVEL 104 MMOL/L (98-107); CREATININE FOR GFR 0.48 MG/DL (0.55-1.30); GLOMERULAR FILTRATION RATE > 60.0 (>60); GLUCOSE, FASTING 124 MG/DL (60-100); POTASSIUM SERUM 3.8 MMOL/L (3.5-5.1); SODIUM LEVEL 136 MMOL/L (136-145); TOTAL PROTEIN 5.7 G/DL (5.7-8.2)
== END ==
LOC: M PLALAB 11:59
PROVIDERS: ATTEND Advanced Practice Midwife
DX: O16.9 Unspecified maternal hypertension, unspecified trimester (principal); Z3A.00 Weeks of gestation of pregnancy not specified

== ENCOUNTER → 2022-07-23 | Outpatient (REF) | payer OTHER | LOC: M SFHCWAGY 12:51 | PROVIDERS: ATTEND Advanced Practice Midwife | DX: O99.332 Smoking (tobacco) complicating pregnancy, second trimester (principal); Z3A.00 Weeks of gestation of pregnancy not specified ==

== ENCOUNTER → 2022-07-31 | Outpatient (CLI) | payer OTHER | LOC: M WHC 13:11 | PROVIDERS: ATTEND Advanced Practice Midwife | DX: O13.3 Gestational [pregnancy-induced] hypertension without significant proteinuria, third trimester (principal); Z3A.35 35 weeks gestation of pregnancy ==

== ENCOUNTER → 2022-07-31 | Outpatient (REF) | payer OTHER ==
[2022-07-31 16:15] LABS: TOTAL PROTEIN,RANDOM URINE 26.4 MG/DL (0.0-14.0)
[2022-07-31 16:20] LABS: CREATININE,RANDOM URINE 114.2 MG/DL
== END ==
LOC: M SFHCWAGY 15:14
PROVIDERS: ATTEND Advanced Practice Midwife
DX: O13.3 Gestational [pregnancy-induced] hypertension without significant proteinuria, third trimester (principal)

== ENCOUNTER 2022-08-10 08:13 | Inpatient (IN) | payer OTHER ==
[2022-08-10] VITALS (16 sets, daily range): BP systolic 101–173; BP diastolic 64–92
[~2022-08-10] VITALS: Ht 170.2 cm; Wt 120.4 kg
[~2022-08-10 08:13] MED LIST changes: +LIDO15SO PO; -LIDO15SO4 PO
[2022-08-10] MEDS ORDERED: HOME MED LIST COMPLETE! XX SCH (08:40)
[2022-08-10] MEDS ORDERED: CARBOPROST TROMETHAMINE 250 MCG/ML AMP IM PRN (09:10)
[2022-08-10] MEDS ORDERED: OXYTOCIN DRIP 30 UNITS in IV 1 EA IV PRN ×4 (09:10)
[2022-08-10] MEDS ORDERED: TRANEXAMIC ACID INJection 1,000 MG in NS 100 ML IV PRN (09:10)
[2022-08-10] MEDS ORDERED: OXYTOCIN INJ 10UNITS/ML 1ML VIAL IM PRN (09:10)
[2022-08-10] MEDS ORDERED: LIDOCAINE 1% MDV 20ML VIAL INFIL PRN (09:10)
[2022-08-10] MEDS: ACETAMINOPHEN 500 MG TAB PO PRN (09:57)
[2022-08-10] MEDS: miSOPROStol 50MCG 1/2 TABLET PO SCH ×2 (09:57→13:57)
[2022-08-10 10:28] LABS: HEMATOCRIT 36.9 % (36.0-47.0); HEMOGLOBIN 11.9 g/dl (12.0-15.5); MEAN CORPUSCULAR HEMOGLOBIN 29.4 pg (27.0-33.0); MEAN CORPUSCULAR HGB CONC 32.2 g/dl (32.0-36.5); MEAN CORPUSCULAR VOLUME 91.1 fl (80.0-96.0); PLATELET COUNT, AUTOMATED 240 10^3/uL (150-450); RED BLOOD COUNT 4.05 10^6/uL (4.00-5.40); WHITE BLOOD COUNT 10.1 10^3/uL (4.0-10.0)
[2022-08-10 10:37] LABS: URIC ACID 6.9 MG/DL (3.1-7.8)
[2022-08-10 10:39] LABS: LDH LACTATE DEHYDROGENASE 243 U/L (120-246)
[2022-08-10 10:40] LABS: ALT/SGPT 19 U/L (7.0-40); AST/SGOT 23 U/L (<34); BILIRUBIN,TOTAL 0.2 MG/DL (0.3-1.2); CREATININE FOR GFR 0.63 MG/DL (0.55-1.30); GLOMERULAR FILTRATION RATE > 60.0 (>60)
[2022-08-10] MEDS ORDERED: NALBUPHINE HCL 10 MG/ML 1ML AMP IV ONE (15:30)
[2022-08-10] MEDS ORDERED: PROMETHAZINE 25MG/ML 1ML VIAL IV ONE (15:30)
[2022-08-10] MEDS ORDERED: DIBUCAINE 1% OINTMENT 30GM TOP PRN (17:40)
[2022-08-10] MEDS ORDERED: RHOGAM 300MCG (1500IU) INJ IM SCH (17:40)
[2022-08-10] MEDS ORDERED: IBUPROFEN 800 MG TAB PO PRN (17:40)
[2022-08-10] MEDS ORDERED: DOCUSATE SODIUM 100MG CAPSULE PO PRN (17:40)
[2022-08-10] MEDS ORDERED: OXYTOCIN DRIP 30 UNITS in IV 1 EA IV SCH ×4 (17:40)
[2022-08-10] MEDS: IBUPROFEN 600MG TAB PO PRN ×2 (19:30→20:52)
[2022-08-11 06:15] VITALS: BP 121/58
[2022-08-11] MEDS: PRENATAL VITAMINS CHEWABLE TABLET PO SCH (09:19)
[2022-08-11 17:55] VITALS: BP 125/72
[2022-08-11 22:21] LABS: BARBITURATES URINE REFLEX NEGATIVE (NEGATIVE); BENZODIAZEPINES URINE REFLEX NEGATIVE (NEGATIVE); CANNABINOIDS URINE REFLEX NEGATIVE (NEGATIVE); PHENCYCLIDINE URINE REFLEX NEGATIVE (NEGATIVE)
[2022-08-11 22:22] LABS: COCAINE METABOLITE URINE REFLE NEGATIVE (NEGATIVE); METHADONE URINE REFLEX NEGATIVE (NEGATIVE); OPIATES URINE REFLEX NEGATIVE (NEGATIVE)
[2022-08-12] LABS: AMPHETAMINES URINE REFLEX PENDING CONFIRMATION (NEGATIVE)
[2022-08-12 06:00] VITALS: BP 130/72
[2022-08-12] MEDS ORDERED: INFLUENZA QUADRIVALENT PF VACCINE 0.5ML SYRINGE IM.IMMUN ONE (09:00)
[2022-08-12] MEDS ORDERED: MEASLES,MUMPS,RUBELLA VACCINE INJ (MMR-II) SC.IMMUN ONE (09:00)
[2022-08-12] MEDS: ACETAMINOPHEN 500 MG TAB PO PRN (09:39)
[2022-08-12] MEDS: PRENATAL VITAMINS CHEWABLE TABLET PO SCH (09:39)
[2022-08-12] MEDS ORDERED: SERT25TA85 PO (15:42)
== END 2022-08-12 16:30 | disposition home or self-care (01) | DRG 560 ==
LOC: M LDI 08:13 → EEVIPCON 08:13 → M OBS 21:06
PROVIDERS: ADMIT Advanced Practice Midwife; ATTEND Advanced Practice Midwife
PROC: 10E0XZZ Delivery of Products of Conception, External Approach (ICD-10-PCS; principal; 2022-08-10)
PROC: 3E0P7VZ Introduction of Hormone into Female Reproductive, Via Natural or Artificial Opening (ICD-10-PCS; 2022-08-10)
DX: O13.4 Gestational [pregnancy-induced] hypertension without significant proteinuria, complicating childbirth (principal); Z37.0 Single live birth; Z3A.37 37 weeks gestation of pregnancy; O99.334 Smoking (tobacco) complicating childbirth; O69.82X0 Labor and delivery complicated by other cord entanglement, without compression, not applicable or unspecified

== ENCOUNTER 2022-08-15 22:58 | Emergency (ER) | payer OTHER ==
[~2022-08-15] VITALS: Ht 170.2 cm; Wt 110.2 kg
[~2022-08-15 22:58] MED LIST changes: +SERT25TA85 PO
[2022-08-15 23:01] VITALS: BP 154/90
== END 2022-08-16 05:05 | disposition left against medical advice (07) ==
LOC: M ED 22:58
DX: Z53.21 Procedure and treatment not carried out due to patient leaving prior to being seen by health care provider (principal)

== ENCOUNTER 2023-07-05 14:55 | Outpatient (CLI) | payer OTHER ==
[~2023-07-05] VITALS: Ht 170.2 cm; Wt 105.9 kg
[~2023-07-05 14:55] MED LIST changes: -LIDO15SO PO; +LIDO15SO8 PO
[2023-07-05 15:22] VITALS: BP 120/64
[2023-07-05] MEDS: BETAMETHASONE SOLUSPAN 6MG/ML 5ML VIAL IM SCH (16:14)
[2023-07-05] MEDS: LR 1,000 ML IV ONE (16:14)
[2023-07-05 16:39] LABS: HEMATOCRIT 34.3 % (36.0-47.0); HEMOGLOBIN 11.5 g/dl (12.0-15.5); MEAN CORPUSCULAR HEMOGLOBIN 30.3 pg (27.0-33.0); MEAN CORPUSCULAR HGB CONC 33.5 g/dl (32.0-36.5); MEAN CORPUSCULAR VOLUME 90.3 fl (80.0-96.0); PLATELET COUNT, AUTOMATED 438 10^3/uL (150-450); WHITE BLOOD COUNT 17.9 10^3/uL (4.0-10.0)
[2023-07-05 17:43] LABS: HEPATITIS C VIRUS ABY INDEX 0.11 INDEX (<0.8)
[2023-07-05 22:06] LABS: HIV 1&2 SCREEN NEGATIVE (NEGATIVE)
[2023-07-06 23:45] LABS: GC DNA AMPLIFICATION NEGATIVE (NEGATIVE)
== END 2023-07-05 17:11 | disposition home or self-care (01) ==
LOC: M LDO 14:55
PROVIDERS: ATTEND Advanced Practice Midwife
DX: O41.03X9 Oligohydramnios, third trimester, other fetus (principal); O09.33 Supervision of pregnancy with insufficient antenatal care, third trimester; O99.333 Smoking (tobacco) complicating pregnancy, third trimester; O99.343 Other mental disorders complicating pregnancy, third trimester; F17.210 Nicotine dependence, cigarettes, uncomplicated; Z87.59 Personal history of other complications of pregnancy, childbirth and the puerperium; F32.2 Major depressive disorder, single episode, severe without psychotic features; F43.10 Post-traumatic stress disorder, unspecified; Z3A.30 30 weeks gestation of pregnancy
CPT/HCPCS: 59025; 85027; 86762; 86780; 86803; 86850; 86900; 86901; 87088; 87186; 87340; 87389; 87810; 87850; 96372; G0463; J0702

== ENCOUNTER → 2023-07-05 | Outpatient (CLI) | payer OTHER | LOC: M RAD 14:00 | PROVIDERS: ATTEND Advanced Practice Midwife | DX: O09.33 Supervision of pregnancy with insufficient antenatal care, third trimester (principal) ==

== ENCOUNTER 2023-07-06 16:22 | Outpatient (CLI) | payer OTHER ==
[~2023-07-06] VITALS: Ht 170.2 cm; Wt 109.0 kg
[2023-07-06 16:37] VITALS: BP 131/62
[2023-07-06] MEDS ORDERED: HOME MED LIST COMPLETE! XX SCH (16:40)
[2023-07-06 17:22] VITALS: BP 118/58
[2023-07-06] MEDS: BETAMETHASONE SOLUSPAN 6MG/ML 5ML VIAL IM ONE (17:27)
[2023-07-06 17:35] VITALS: BP 119/65
== END 2023-07-06 17:43 | disposition home or self-care (01) ==
LOC: M LDO 16:22
PROVIDERS: ATTEND Obstetrics & Gynecology
DX: O41.03X9 Oligohydramnios, third trimester, other fetus (principal); O99.333 Smoking (tobacco) complicating pregnancy, third trimester; O09.33 Supervision of pregnancy with insufficient antenatal care, third trimester; F17.210 Nicotine dependence, cigarettes, uncomplicated; Z3A.30 30 weeks gestation of pregnancy
CPT/HCPCS: 59025; 76815; 96372; G0463; J0702

== ENCOUNTER → 2023-07-09 | Outpatient (CLI) | payer OTHER | LOC: M PLALAB 10:08 | PROVIDERS: ATTEND Advanced Practice Midwife | DX: O41.03X0 Oligohydramnios, third trimester, not applicable or unspecified (principal) ==

== ENCOUNTER → 2023-07-15 | Outpatient (CLI) | payer OTHER | LOC: M LAB 08:04 | PROVIDERS: ATTEND Advanced Practice Midwife | DX: R73.02 Impaired glucose tolerance (oral) (principal) ==

== ENCOUNTER → 2023-08-06 | Outpatient (CLI) | payer OTHER, SELFPAY | LOC: M WHC 10:27 | PROVIDERS: ATTEND Advanced Practice Midwife | DX: O41.03X0 Oligohydramnios, third trimester, not applicable or unspecified (principal); Z3A.34 34 weeks gestation of pregnancy ==

== ENCOUNTER → 2023-08-23 | Outpatient (CLI) | payer MEDICAID | LOC: M OUTALCOH 09:23 | PROVIDERS: ATTEND Psychiatry & Neurology Psychiatry | DX: F15.20 Other stimulant dependence, uncomplicated (principal); F17.200 Nicotine dependence, unspecified, uncomplicated ==

== ENCOUNTER 2023-08-30 16:14 | Outpatient (RCR) | payer MEDICAID | END 2023-08-31 | LOC: M OUTALCOH 16:14 | PROVIDERS: ATTEND Psychiatry & Neurology Psychiatry | DX: F15.10 Other stimulant abuse, uncomplicated (principal); F17.200 Nicotine dependence, unspecified, uncomplicated ==

== ENCOUNTER 2023-09-24 13:00 | Outpatient (RCR) | payer MEDICAID | END 2023-10-01 | LOC: M OUTALCOH 13:00 | PROVIDERS: ATTEND Psychiatry & Neurology Psychiatry | DX: F15.10 Other stimulant abuse, uncomplicated (principal); F17.200 Nicotine dependence, unspecified, uncomplicated ==